=== PATIENT | male | born 1995 | race Caucasian/White ===

== ENCOUNTER 2019-09-30 18:59 | Emergency (ER) | payer BC ==
[2019-09-30 20:01] LABS: BASO # 0.1 x10^3/uL (0.0-0.2); BASO % 1 % (0-3); EOS # 0.1 x10^3/uL (0.0-0.7); EOS % 1 % (0-3); HEMATOCRIT 48.7 % (39.0-53.0); HEMOGLOBIN 17.1 g/dL (13.0-17.5); LYMPH # 2.3 x10^3/uL (1.0-4.8); LYMPH % 27 % (24-48); MEAN CORPUSCULAR HEMOGLOBIN 31 pg (25-35); MEAN CORPUSCULAR HGB CONC 35 g/dL (31-37); MEAN CORPUSCULAR VOLUME 87 fL (79-100); MONO # 0.5 x10^3/uL (0.0-1.1); MONO % 6 % (0-9); NEUT # 5.6 x10^3uL (1.8-7.7); NEUT % 65 % (31-73); PLATELET COUNT 422 x10^3/uL (140-400); RED BLOOD COUNT 5.57 x10^6/uL (4.30-5.70); WHITE BLOOD COUNT 8.5 x10^3/uL (4.0-11.0)
[2019-09-30 20:10] LABS: CALCIUM 9.3 mg/dL (8.5-10.1); CREATININE 0.7 mg/dL (0.7-1.3); POTASSIUM 4.1 mmol/L (3.5-5.1)
[2019-09-30 20:15] LABS: ALBUMIN 4.4 g/dL (3.4-5.0); ALBUMIN/GLOBULIN RATIO 1.1 (1.0-1.7); TOTAL BILIRUBIN 0.2 mg/dL (0.2-1.0); TOTAL PROTEIN 8.3 g/dL (6.4-8.2)
[2019-09-30 20:18] LABS: BARBITURATES NEG (NEG); BENZODIAZEPINES NEG (NEG); CANNABINOIDS NEG (NEG); COCAINE NEG (NEG); METHADONE NEG (NEG); OPIATES NEG (NEG); PHENCYCLIDINE NEG (NEG)
[2019-09-30 20:20] LABS: AMPHETAMINE/METHAMPHETAMINE NEG (NEG)
[2019-09-30 20:21] LABS: BACTERIA,URINE 0 /HPF (0-FEW); BILIRUBIN,URINE NEG (NEG); CLARITY,URINE CLEAR; COLOR,URINE COLORLESS; GLUCOSE,URINE NEG (NEG); NITRITE,URINE NEG (NEG); RBC,URINE 0 /HPF (0-2); UROBILINOGEN,URINE 0.2 mg/dL (0.2 mg/dL); WBC,URINE 0 /HPF (0-4)
[2019-09-30] MEDS ORDERED: MVI, ADULT NO.4 WITH VIT K 10 ML VIAL IV ONE ×2 (21:07→21:10)
[2019-09-30] MEDS ORDERED: THIAMINE 200 MG/2 ML VIAL. IV ONE (21:07)
[2019-09-30] MEDS ORDERED: MVI, ADULT NO.4 WITH VIT K 10 ML, FOLIC ACID SYRINGE for ER 1 MG, THIAMINE INJ 100 MG i... IV ONE ×4 (21:15)
[2019-09-30] MEDS ORDERED: hydrOXYzine HCL 25 MG TABLET PO PRN (22:45)
--- NOTE | 2019-09-30 23:10 | EKG ---
[address] [address] Test Date: 2019-09-30 Test Time: 20:36:38 Pat Name: MARIA DE JESUS LONG Department: Room: Gender: M [employer]: : 1995 Requested By: MICHELE MYERS Order Number: [id number] Reading MD: Measurements Intervals [place] Rate: 92 P: 59 NC: 134 QRS: 38 QRSD: 92 T: 28 QT: 330 QTc: 413 Interpretive Statements SINUS RHYTHM NO SPECIFIC ECG ABNORMALITIES RI6.01 No previous ECG available for comparison
[2019-10-01 00:51] VITALS: BP 130/54
[2019-10-01] MEDS ORDERED: PROM25TA10 PO (01:12)
[2019-10-01] MEDS ORDERED: CHLO25CA9 PO (01:12)
[2019-10-01] MEDS ORDERED: LORazepam 1 MG TABLET PO ONE (01:15)
--- NOTE | 2019-10-01 06:38 | PHYS DOC ---
Past History Past Medical History: No Pertinent History Past Surgical History: No Surgical History Additional Smoking Information: TOBACCO CHEW Alcohol Use: Heavy Drug Use: Cocaine, Heroin, Methamphetamine Adult General Chief Complaint Chief Complaint: DRUG ABUSE HPI HPI Patient is a 23-year-old male who presents with request for for alcohol abuse. Patient states he has been drinking a pint and a half of 100% proof alcohol daily for the past few years. Patient was admitted to this facility approximately 2 weeks ago for alcohol abuse and was sober for approximately 10 days prior to relapsing. He is followed up with AA states he he resumed drinking heavily one week ago. He is accompanied at bedside by his parents who recently discovered the patient's drinking in the past one month. 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 initially made statements to his father that he felt worthless and wished he was not alive. He did not state he was suicidal or give the sick plan to harm or kill himself. Patient denies any such symptoms or complaints at this time. Patient does report increased anxiety was recently started on Prozac which she is taking. He reports history of severe alcohol withdrawal. No history of alcohol withdrawal seizures[] Review of Systems Review of Systems Review of symptoms as per history of present illness. All other review symptoms are negative. All other systems were reviewed and found to be within normal limits, except as documented in this note. Current Medications Current Medications Current Medications Medications (Trade) Dose Ordered Sig/Fausto Start Time Stop Time Status Last Admin Dose Admin Hydroxyzine HCl (Atarax) 50 mg 1X PRN 09/30/19 22:45 10/01/19 03:10 DC Lorazepam (Ativan Inj) 1 mg 1X ONCE 09/30/19 21:00 09/30/19 21:02 DC 09/30/19 21:18 1 MG Lorazepam (Ativan) 2 mg 1X ONCE 10/01/19 01:15 10/01/19 01:42 DC 10/01/19 01:17 2 MG Multivitamins/ Minerals (Infuvite Adult) 10 ml STK-MED ONCE 09/30/19 21:10 09/30/19 21:10 DC Multivitamins/ Minerals 10 ml/ Folic Acid 1 mg/ Thiamine HCl 100 mg/Lactated Ringer's 1,011.2 ml @ 1,011.2 mls/hr 1X ONCE 09/30/19 21:15 09/30/19 22:14 DC 09/30/19 21:18 1,011.2 MLS/HR Thiamine HCl (Thiamine Vial) 200 mg STK-MED ONCE 09/30/19 21:07 09/30/19 21:07 DC Allergies Allergies Allergies Coded Allergies Type Severity Reaction Last Updated Verified No Known Drug Allergies 09/30/19 No Physical Exam Physical Exam Constitutional: Well developed, well nourished, no acute distress, non-toxic appearance. [] HENT: Normocephalic, atraumatic, bilateral external ears normal, oropharynx moist, no oral exudates, nose normal. [] Eyes: PERRLA, EOMI, conjunctiva normal, no discharge. [] Neck: Normal range of motion, no tenderness, supple, no stridor. [] Cardiovascular:Heart rate regular rhythm, no murmur [] Lungs & Thorax: Bilateral breath sounds clear to auscultation [] Abdomen: Bowel sounds normal, soft, no tenderness. [] Skin: Warm, dry, no erythema, no rash. [] Back: No tenderness, no CVA tenderness. [] Extremities: No tenderness, no cyanosis, no clubbing, ROM intact, no edema. [] Neurologic: Alert and oriented X 3, normal motor function, normal sensory function, no focal deficits noted. [] Psychologic: Affect normal, judgement normal, mood normal. [] Current Patient Data Vital Signs Vital Signs Date Time Temp Pulse Resp B/P (MAP) Pulse Ox O2 Delivery O2 Flow Rate FiO2 10/01/19 00:51 93 20 130/54 (79) 97 Room Air 09/30/19 19:20 98.5 Lab Results Laboratory Tests Test 09/30/19 19:22 09/30/19 19:34 09/30/19 22:24 Urine Collection Type Unknown Urine Color Colorless Urine Clarity Clear Urine pH 6.5 Urine Specific [place] <=1.005 Urine Protein Neg (NEG-TRACE) Urine Glucose (UA) Neg mg/dL (NEG) Urine Ketones (Stick) Neg mg/dL (NEG) Urine Blood Neg (NEG) Urine Nitrite Neg (NEG) Urine Bilirubin Neg (NEG) Urine Urobilinogen Dipstick 0.2 mg/dL (0.2 mg/dL) Urine Leukocyte Esterase Neg (NEG) Urine RBC 0 /HPF (0-2) Urine WBC 0 /HPF (0-4) Urine Bacteria 0 /HPF (0-FEW) White Blood Count 8.5 x10^3/uL (4.0-11.0) Red Blood Count 5.57 x10^6/uL (4.30-5.70) Hemoglobin 17.1 g/dL (13.0-17.5) Hematocrit 48.7 % (39.0-53.0) Mean Corpuscular Volume 87 fL (79-100) Mean Corpuscular Hemoglobin 31 pg (25-35) Mean Corpuscular Hemoglobin Concent 35 g/dL (31-37) Red Cell Distribution Width 13.0 % (11.5-14.5) Platelet Count 422 x10^3/uL (140-400) H Neutrophils (%) (Auto) 65 % (31-73) Lymphocytes (%) (Auto) 27 % (24-48) Monocytes (%) (Auto) 6 % (0-9) Eosinophils (%) (Auto) 1 % (0-3) Basophils (%) (Auto) 1 % (0-3) Neutrophils # (Auto) 5.6 x10^3uL (1.8-7.7) Lymphocytes # (Auto) 2.3 x10^3/uL (1.0-4.8) Monocytes # (Auto) 0.5 x10^3/uL (0.0-1.1) Eosinophils # (Auto) 0.1 x10^3/uL (0.0-0.7) Basophils # (Auto) 0.1 x10^3/uL (0.0-0.2) Sodium Level 144 mmol/L (136-145) Potassium Level 4.1 mmol/L (3.5-5.1) Chloride Level 105 mmol/L (98-107) Carbon Dioxide Level 24 mmol/L (21-32) Anion Gap 15 (6-14) H Blood Urea Nitrogen 16 mg/dL (8-26) Creatinine 0.7 mg/dL (0.7-1.3) Estimated GFR (Cockcroft-Gault) 141.0 BUN/Creatinine Ratio 23 (6-20) H Glucose Level 95 mg/dL (70-99) Calcium Level 9.3 mg/dL (8.5-10.1) Total Bilirubin 0.2 mg/dL (0.2-1.0) Aspartate Amino Transferase (AST) 29 U/L (15-37) Alanine Aminotransferase (ALT) 40 U/L (16-63) Alkaline Phosphatase 93 U/L (46-116) Total Protein 8.3 g/dL (6.4-8.2) H Albumin 4.4 g/dL (3.4-5.0) Albumin/Globulin Ratio 1.1 (1.0-1.7) Urine Opiates Screen Neg (NEG) Urine Methadone Screen Neg (NEG) Urine Barbiturates Neg (NEG) Urine Phencyclidine Screen Neg (NEG) Urine Amphetamine/Methamphetamine Neg (NEG) Urine Benzodiazepines Screen Neg (NEG) Urine Cocaine Screen Neg (NEG) Urine Cannabinoids Screen Neg (NEG) Ethyl Alcohol Level 263 mg/dL (0-10) H 198 mg/dL (0-10) H Urine Ethyl Alcohol Pos (NEG) EKG EKG [EKG: Reviewed] Radiology/Procedures Radiology/Procedures [] Course & Med Decision Making Course & Med Decision Making Pertinent Labs and Imaging studies reviewed. (See chart for details) [Patient with alcohol abuse. Patient screened for possible mass. Recommendations are home safety plan and outpatient follow-up later today. Patient given Ativan in the ED for anxiety related to drinking. He is discharged home with Librium and agrees to follow-up as scheduled. Signs and symptoms of severe alcohol all discussed in detail with patient and patient's parents verbalize understanding of potential medical emergency and need to return to the ED. Patient resting comfortably with Vital signs stable at time of discharge. Dragon Disclaimer Dragon Disclaimer This electronic medical record was generated, in whole or in part, using a voice recognition dictation system. Departure Departure: Impression: Primary Impression: Alcohol abuse Disposition: HOME, SELF-CARE Condition: STABLE Patient Instructions: Alcohol and Drug Addiction, Finding Treatment Additional Instructions: Please instructions and home safety plan. Take newly prescribed medications as d irected and follow-up with the guidance Center tomorrow. Follow-up with local primary care physician 1-2 days for reevaluation. Return to the emergency department if new or worsening symptoms. Scripts Promethazine Hcl (PROMETHAZINE HCL) 25 Mg Tablet 1 TAB PO PRN Q6HRS, #10 TAB Prov: LUCIAMICHELE SZYMANSKI 10/01/19 Chlordiazepoxide Hcl (CHLORDIAZEPOXIDE HCL) 25 Mg Capsule 25 MG PO QID, #16 CAP Prov: MICHELE MYERS DO 10/01/19 MICHELE MYERS DO Oct 01, 2019 06:38
== END 2019-10-01 01:17 | disposition home or self-care (01) ==
LOC: ER 18:59
DX: F10.20 Alcohol dependence, uncomplicated (principal); F17.220 Nicotine dependence, chewing tobacco, uncomplicated; F14.10 Cocaine abuse, uncomplicated; F15.10 Other stimulant abuse, uncomplicated; F11.10 Opioid abuse, uncomplicated; Y90.8 Blood alcohol level of 240 mg/100 ml or more
CPT/HCPCS: 36415; 80053; 80307; 81001; 85025; 93005; 96365; 96366; 96375; 99285; G0480; J2060; J7120